=== PATIENT | female | born 2000 | race Caucasian/White ===

== ENCOUNTER → 2024-06-17 17:08 | Outpatient (CLI) | payer BC, SELFPAY ==
--- NOTE | 2024-06-17 17:11 | DI.MRI.S_ITS ---
PROCEDURE: MR KNEE RT WO CON INDICATIONS: right knee pain TECHNIQUE: Noncontrast sagittal PD fast spin echo and T2 fast spin echo with fat saturation, sagittal 3-D FLASH with fat saturation; coronal T1 spin echo and PD fast spin echo with fat saturation, and axial PD fast spin echo with fat saturation through the knee. COMPARISON: [facility], CR, XR KNEE 3 VIEWS RIGHT, 03/20/2024, 10:45. FINDINGS: Image quality: Excellent. Bones: The bone marrow signal is normal. There is no acute fracture or dislocation. Joints: There is no significant knee joint effusion. There is no significant knee osteoarthritis. Louis's cyst: None. Menisci: The medial meniscus is normal. The lateral meniscus is normal. The posterior root attachments are normal. Cruciate ligaments: The anterior cruciate ligament is normal. The posterior cruciate ligament is normal. Collateral ligaments: The medial collateral ligament complex is normal. The lateral collateral ligament complex is normal. Popliteus Muscle/Tendon: The popliteus muscle and tendon are normal. Extensor mechanism: The quadriceps tendon is normal. The patellar tendon is normal. The medial and lateral patellar retinacular attachments are normal. Articular cartilage: There is no significant articular cartilage defect. Other: No other acute findings. IMPRESSION: No acute MR abnormality of the right knee. Dictated by: Cleveland Wilkins M.D. on 06/18/2024 at 21:09 Approved by: Cleveland Wilkins M.D. on 06/18/2024 at 21:14
== END ==
LOC: MRI 17:10
PROVIDERS: Referring Provider Family Medicine; Visit Provider Family Medicine
DX: M25.561 Pain in right knee (principal)
CPT/HCPCS: 73721

== ENCOUNTER 2024-12-05 14:10 | Emergency (ER) | payer BC, SELFPAY ==
[2024-12-05 14:15] VITALS: BP 165/96; PULSE 67; PULSE 77; RESP 18; TEMP 36.7; O2SAT 100; BMI 24.3
[2024-12-05 14:16] VITALS: BP 165/96; PULSE 70; O2SAT 100
[2024-12-05 14:30] VITALS: O2SAT 100
[2024-12-05 14:34] LABS: Add Manual Diff / Slide Review NO; Basophils Absolute Auto 100 /uL (0-100); Basophils Percent Auto 0.8 % (0-2); Eosinophils Absolute Auto 100 /uL (0-450); Eosinophils Percent Auto 1.5 % (2-4); Hematocrit 41.9 % (36-46); Hemoglobin 14.3 g/dL (12.0-16.0); Lymphocytes Absolute Auto 2000 /uL (1100-4500); Lymphocytes Percent Auto 24.2 % (25-40); Mean Corpuscular Hemoglobin 30.2 PG (26-34); Mean Corpuscular Volume 88.8 fL (80-100); Monocytes Absolute Auto 800 /uL (0-900); Monocytes Percent Auto 9.3 % (3-14); Neutrophils Absolute Auto 5200 /uL (1500-7000); Neutrophils Percent Auto 64.2 % (50-75); Platelet Count 152 X10^3/uL (150-400); Red Blood Cell Count 4.72 X10^6/uL (4.0-5.2); Red Cell Distribution Width 13.1 % (11.6-14.8); White Blood Cell Count 8.1 X10^3/uL (4.5-11.0)
--- NOTE | 2024-12-05 14:38 | ED_ITS ---
HPI - Abdominal Pain General Chief Complaint: Abdominal Pain Stated Complaint: sent by PCP stomach pains Time Seen by Provider: 12/05/24 14:30 Source: patient Mode of arrival: Ambulatory History of Present Illness HPI narrative: 24-year-old female presents with right lower quadrant pain worse today compared to the past few days seen by PCP with ultrasound pending but mentions sharp pains when she has a bowel movement localized to the right lower quadrant over the last few days. Last ate a chicken wrap earlier today. Denies chest, back pain, hematuria, fever, chills, urinary symptoms, vaginal discharge, nausea, vomiting, or diarrhea. Other than what is stated 14 point review of system is negative Related Data Previous Rx's ?Medication ?Instructions ?Recorded hydrocodone 5 mg-acetaminophen 300 1 tab PO Q4-6H PRN pain #20 tabs 12/05/24 mg tablet hydrocodone 5 mg-acetaminophen 325 1 tab PO Q4-6H PRN pain #20 tabs 12/05/24 mg tablet Allergies Allergy/AdvReac Type Severity Reaction Status Date / Time No Known Drug Allergies Allergy Verified 12/05/24 14:21 Review of Systems Review of Systems ROS Unobtainable: All systems reviewed & are unremarkable except as noted in HPI and below Patient History Smoking Status: Never smoker Exam Narrative Exam Narrative: GENERAL: [24] year old patient appears stated age. Well-developed patient, in mild distress. HEAD: Atraumatic. Normocephalic. EYES: Pupils equal round and reactive. Extraocular motions intact. No scleral icterus. No injection or drainage. ENT: Nose without bleeding, purulent drainage. Throat without erythema, tonsillar hypertrophy or exudate. Airway patent. NECK: Trachea midline. Non tender CARDIOVASCULAR: Regular rate and rhythm without murmurs, gallops, or rubs. RESPIRATORY: Clear to auscultation. Breath sounds equal bilaterally. No wheezes, rales, or rhonchi. GASTROINTESTINAL: Abdomen soft, mild RLQ TTP no r/r/g, nondistended. EXTREMITIES: No edema or joint tenderness. BACK: Nontender without deformity or crepitance. No flank tenderness. NEURO: AOx3. SKIN: No rash or erythema of visible areas Initial Vital Signs Initial Vital Signs: Vital Signs Temperature 98.1 F 12/05/24 14:15 Pulse Rate 77 12/05/24 14:15 Respiratory Rate 18 12/05/24 14:15 Blood Pressure 165/96 H 12/05/24 14:15 Pulse Oximetry 100 12/05/24 14:15 Oxygen Delivery Method Room Air 12/05/24 14:15 Course Orders Ordered: ED Orders 12/05/24 14:22 Complete Blood Count AUTO DIFF Stat Comprehensive Metabolic Panel Stat Lipase Stat 12/05/24 14:27 EKG-12 Lead Stat 12/05/24 14:37 CT abdomen pelvis w con Stat Complete Blood Count AUTO DIFF Stat Comprehensive Metabolic Panel Stat Lipase Stat Ondansetron HCl (Ondansetron 4 Mg/2 Ml Inj) 4 mg IV NOW PRN PRN Reason: Nausea And Vomiting Ondansetron HCl (Ondansetron 4 Mg Odt) 4 mg PO NOW PRN PRN Reason: Nausea And Vomiting Vital Signs Vital signs: Vital Signs - 8 hr 12/05/24 14:15 Temperature 98.1 F Pulse Rate 77 Respiratory Rate 18 Blood Pressure 165/96 H Pulse Oximetry 100 Oxygen Delivery Method Room Air MDM - Abdominal Pain Lab Data 12/05/24 14:22 12/05/24 14:22 Labs: Lab Results 12/05/24 Range/Units 14:22 WBC 8.1 (4.5-11.0) X10^3/uL RBC 4.72 (4.0-5.2) X10^6/uL Hgb 14.3 (12.0-16.0) g/dL Hct 41.9 (36-46) % MCV 88.8 (80-100) fL MCH 30.2 (26-34) PG MCHC 34.0 (30-36) % RDW 13.1 (11.6-14.8) % Plt Count 152 (150-400) X10^3/uL Neut % (Auto) 64.2 (50-75) % Lymph % (Auto) 24.2 L (25-40) % [place] % (Auto) 9.3 (3-14) % Eos % (Auto) 1.5 L (2-4) % Baso % (Auto) 0.8 (0-2) % Neut # (Auto) 5200 (6647-8770) /uL Lymph # (Auto) 2000 (5294-4320) /uL [place] # (Auto) 800 (0-900) /uL Eos # (Auto) 100 (0-450) /uL Baso # (Auto) 100 (0-100) /uL MDM Narrative Medical decision making narrative: [address] [address] [address] Scan Report Signed Patient: Allegra George MR#: [id number] : 2000 Acct:[id number] Age/Sex: 24 / F Date of Service: 12/05/24 Loc: ED Accession Number: [id number] Procedure: CT abdomen pelvis w con Ordering Provider: Santosh Ibarra D.O. PROCEDURE: CT ABDOMEN PELVIS W CON INDICATIONS: RLQ pain TECHNIQUE: After the administration of intravenous contrast, axial sections acquired from the lung bases to the pubic symphysis. Coronal and sagittal reformats were performed. For radiation dose reduction, the following was used: automated exposure control, adjustment of mA and/or kV according to patient size. COMPARISON: None. FINDINGS: Image quality: Diagnostic. Lower Chest: No significant findings. ABDOMEN: Liver: No solid mass. Gallbladder: No radiopaque gallstones or wall thickening. Biliary ducts: No biliary dilation. Pancreas: No ductal dilation. Spleen: Size is within normal limits. Adrenal Glands: No adrenal nodules. Kidneys and Ureters: No hydronephrosis. No solid mass. No complex renal cystic lesion which requires follow up. Stomach and Bowel: Normal colonic caliber, without significant wall thickening. Peritoneum: No abnormal intraperitoneal fluid. No free air. Ventral Wall: No significant ventral hernia. Abdominal Nodes: No retroperitoneal or mesenteric adenopathy by size criteria. Vessels: Aorta and inferior vena cava are normal in size. PELVIS: Pelvic Organs: Cystic change in the right and neck is a and small amount of free fluid in the pelvis pulmonary reflects ruptured ovarian cyst. Normal appendix noted.. Bladder: No bladder wall thickening, accounting for underdistention. Pelvic Nodes: No enlarged lymph nodes. Miscellaneous: No inguinal hernias are seen. Bones: No aggressive osseous abnormality. IMPRESSION: Probable ruptured right ovarian cyst. Cystic change in the right adnexa and small amount of free fluid in the pelvis. Normal appendix Discharge Plan Departure Patient Disposition: Home Clinical Impression: Ovarian cyst rupture Instructions: DI for Ovarian Cyst Activity Restrictions/Additional Instructions: Return with new or worsening symptoms. Take Tylenol and or ibuprofen for pain and hydrocodone for breakthrough pain. Prescriptions: New hydrocodone-acetaminophen 5-325 mg tablet 1 tab PO Q4-6H PRN (Reason: pain) Qty: 20 0RF hydrocodone-acetaminophen 5-300 mg tablet 1 tab PO Q4-6H PRN (Reason: pain) Qty: 20 0RF Stand Alone Forms: Patient Portal/API
[2024-12-05 14:45] LABS: Alanine Aminotransferase 17 IU/L (<35); Albumin 4.6 g/dL (3.5-5.0); Albumin Globulin Ratio 1.4 (1.0-2.8); Alkaline Phosphatase 53 U/L (38-126); Aspartate Aminotransferase 26 IU/L (14-36); BUN Creatinine Ratio 17.6 (6-22); Bilirubin Total 0.6 mg/dL (0.2-1.3); Blood Urea Nitrogen 15 mg/dL (7-17); Calcium 9.3 mg/dL (8.4-10.2); Carbon Dioxide 24 mmol/L (22-32); Chloride 105 mmol/L (98-107); Estimated Glomerular Filt Rate > 60 mL/min (>60); Globulin 3.2 g/dL (1.7-4.1); Glucose 82 mg/dL (70-99); HEMOLYSIS < 15 (0-50); Lipase 82 U/L (23-300); Potassium 4.1 mmol/L (3.4-5.1); Sodium 138 mmol/L (137-145); Total Protein 7.8 g/dL (6.3-8.2)
[2024-12-05] MEDS: SODIUM CHLORIDE 0.9% 1,000 ML 1000 ML IV (14:50)
[2024-12-05] MEDS: KETOROLAC 30 MG/ML VIAL IV (14:50)
[2024-12-05 15:00] VITALS: PULSE 59; O2SAT 99
[2024-12-05 15:30] VITALS: PULSE 64; O2SAT 99
[2024-12-05 16:00] VITALS: PULSE 71; O2SAT 100
== END 2024-12-05 16:15 | disposition home or self-care (01) ==
PROVIDERS: Emergency Provider Family Medicine
DX: N83.201 Unspecified ovarian cyst, right side (principal)
CPT/HCPCS: 36415; 74177; 80053; 81003; 81025; 83690; 85025; 96361; 96374; 99284; J1885; Q9967